=== PATIENT | male | born 1970 | race American Indian/Alaskan Native ===

== ENCOUNTER 2019-01-15 13:33 | Emergency (ER) | payer OTHER ==
[2019-01-15 13:34] VITALS: BMI 30.5
--- NOTE | 2019-01-15 14:05 | C.PDOC ---
History Of Present Illness 48 y/o male presents to ED requesting to speak to a psychiatrist. Patient states that he feels some people are trying to hurt him. Patient is a poor historian, doesnt provide enough details. He admits he smokes marijuana and occasionally uses ecstasy. Patient also complains of headache, eye pain, and mild nausea but denies any other physical complaints. He denies prior history of psychiatric illness. Time Seen by Provider: 01/15/19 13:46 Chief Complaint (Nursing): Psychiatric Evaluation History Per: Patient History/Exam Limitations: no limitations Onset/Duration Of Symptoms: Days Current Symptoms Are (Timing): Still Present Past Medical History Reviewed: Historical Data, Nursing Documentation, Vital Signs Vital Signs: Last Vital Signs Temp 98.2 F 01/15/19 13:44 Pulse 86 01/15/19 13:44 Resp 20 01/15/19 13:44 BP 121/84 01/15/19 13:44 Pulse Ox 18 L 01/15/19 13:44 - Medical History PMH: Depression Family History: Denies: No Known Family Hx - Social History Hx Tobacco Use: Yes (2 per day) Hx Alcohol Use: Yes Hx Substance Use: Yes (marijuana) Review Of Systems Constitutional: Negative for: Fever, Chills Eyes: Positive for: Pain Cardiovascular: Negative for: Chest Pain Respiratory: Negative for: Cough, Shortness of Breath Gastrointestinal: Positive for: Nausea (mild). Negative for: Vomiting, Abdominal Pain Neurological: Positive for: Headache. Negative for: Weakness, Numbness Psych: Positive for: Psychosis Physical Exam - Physical Exam Appears: Non-toxic, No Acute Distress, Other (calm, quiet, cooperative) Skin: Warm, Dry Head: Atraumatic, Normacephalic Eye(s): bilateral: Normal Inspection Oral Mucosa: Moist Neck: Supple Cardiovascular: Rhythm Regular, No Murmur Respiratory: Normal Breath Sounds, No Rales, No Rhonchi, No Wheezing Gastrointestinal/Abdominal: Soft, No Tenderness Extremity: Bilateral: Atraumatic, Normal ROM Neurological/Psych: Oriented x3, Normal Speech Gait: Steady ED Course And Treatment - Laboratory Results Result Diagrams: 01/15/19 14:25 01/15/19 14:25 Lab Interpretation: Abnormal (UDS +PCP, amphetamines and marijuana) ECG: Interpreted By Me ECG Rhythm: Sinus Tachycardia (with rightward axis) ECG Interpretation: No Acute Changes - Radiology CXR: Interpreted by Tn CXR Interpretation: Yes: No Acute Disease - Other Rad CXR X-Ray: Read By Radiologist Interpretation: FINDINGS: LUNGS: No active pulmonary disease. PLEURA: No significant pleural effusion identified. No pneumothorax apparent. CARDIOVASCUL AR: No aortic atherosclerotic calcification present. Normal cardiac size. No pulmonary vascular congestion. OSSEOUS STRUCTURES: No significant abnormalities. VISUALIZED UPPER ABDOMEN: Normal. OTHER FINDINGS: None. IMPRESSION: No active disease. - CT Scan/US Head Other Rad Studies (CT/US): Read By Radiologist, Radiology Report Reviewed CT/US Interpretation: Accession No. : [id number]. Patient Name / ID : JEFF Pickard / [id number]. Exam Date : 01/15/2019 14:11:07 ( Approved ). Study Comment : Sex / Age : M / 48Y. Creator : Ntaanael Lujan. Dictator : Allen Streeter MD. Flatwork Assembler : Apprenticeship Training Representative : Allen Streeter MD. Approver2 : Report Date : 01/15/2019 14:17:14. My Comment : * . Date of service: 01/15/2019. PROCEDURE: CT HEAD WITHOUT CONTRAST. HISTORY: headache. COMPARISON: None available. TECHNIQUE: Axial computed tomography images were obtained through the head/brain without intravenous contrast. Radiation dose: Total exam DLP = 1219.2 mGy-cm. This CT exam was performed using one or more of the following dose reduction techniques: Automated exposure control, adjustment of the mA and/or kV according to patient size, and/or use of iterative reconstruction technique. FINDINGS: HEMORRHAGE: No intracranial hemorrhage. BRAIN: No mass effect or edema. No atrophy or chronic microvascular ischemic changes. VENTRICLES: Unremarkable. No hydrocephalus. CALVARIUM: Unremarkable. PARANASAL SINUSES: Unremarkable as visualized. No significant inflammatory changes. MASTOID AIR CELLS: Unremarkable as visualized. No inflammatory changes. OTHER FINDINGS: None. IMPRESSION: Normal CT of the Head. Progress Note: Patient accepted for psychiatric admission at [facility] by Dr Coleman. Patient is medically cleared for transport to [facility]. Medical Decision Making Medical Decision Making: Plan: --Head CT --Labs --UA Disposition Counseled Patient/Family Regarding: Studies Performed - Disposition Disposition: Trans to Other Acute Care Hosp Disposition Time: 18:32 Condition: STABLE - Clinical Impression Clinical Impression: Bipolar disorder, Polysubstance abuse - Scribe Statement The provider has reviewed the documentation as recorded by the June Dotson Provider Attestation: All medical record entries made by the June were at my direction and personally dictated by me. I have reviewed the chart and agree that the record accurately reflects my personal performance of the history, physical exam, medical decision making, and the department course for this patient. I have also personally directed, reviewed, and agree with the discharge instructions and disposition.
[2019-01-15 14:28] LABS: BASO # 0.1 K/uL (0.0-0.2); BASO % 0.8 % (0.0-2.0); EOS % 0.1 % (0.0-4.0); HEMOGLOBIN 18.8 g/dL (12.0-18.0); LYMPH # 1.9 K/uL (1.0-4.3); LYMPH % 21.7 % (20.0-40.0); MEAN CELL VOLUME 91.1 fL (80.0-94.0); MEAN PLATELET VOLUME 7.5 fL (7.2-11.7); MONO # 1.1 K/uL (0.0-0.8); MONO % 13.2 % (0.0-10.0); NEUT # 5.5 K/uL (1.8-7.0); NEUT % 64.2 % (50.0-75.0); NRBC % 0.1 % (0.0-2.0); RBC 6.07 Mil/uL (4.40-5.90); RED CELL DISTRIBUTION WIDTH 13.4 % (11.5-14.5); WHITE BLOOD COUNT 8.6 K/uL (4.8-10.8)
[2019-01-15 14:41] LABS: ALB/GLOB RATIO 1.1 (1.0-2.1); ALBUMIN 4.8 g/dL (3.5-5.0); ALT/SGPT 20 U/L (21-72); AST/SGOT 62 U/L (17-59); BLOOD UREA NITROGEN 24 mg/dL (9-20); CALCIUM 10.7 mg/dl (8.6-10.4); GFR NON-AFRICAN AMERICAN 44
[2019-01-15 15:18] LABS: SQUAMOUS EPITHIAL < 1 /hpf (0-5); URINE BILIRUBIN 1+ (NEGATIVE); URINE BLOOD NEGATIVE (NEGATIVE); URINE CLARITY Hazy (Clear); URINE COLOR Amber (YELLOW); URINE GLUCOSE (UA) NORMAL (Normal); URINE HYALINE CAST >20 /lpf (0-2); URINE LEUKOCYTE ESTERASE NEG Leu/uL (Negative); URINE PROTEIN 2+ mg/dL (NEGATIVE)
[2019-01-15 15:20] LABS: BARBITURATES, UR NEGATIVE (NEGATIVE); BENZODIAZEPINES, UR NEGATIVE (NEGATIVE); OPIATES, UR NEGATIVE (NEGATIVE)
[2019-01-15 15:21] LABS: PHENCYCLIDINE, UR POSITIVE (NEGATIVE)
--- NOTE | 2019-01-15 15:26 | CT ---
Date of service: 01/15/2019 PROCEDURE: CT HEAD WITHOUT CONTRAST. HISTORY: headache COMPARISON: None available. TECHNIQUE: Axial computed tomography images were obtained through the head/brain without intravenous contrast. Radiation dose: Total exam DLP = 1219.2 mGy-cm. This CT exam was performed using one or more of the following dose reduction techniques: Automated exposure control, adjustment of the mA and/or kV according to patient size, and/or use of iterative reconstruction technique. FINDINGS: HEMORRHAGE: No intracranial hemorrhage. BRAIN: No mass effect or edema. No atrophy or chronic microvascular ischemic changes. VENTRICLES: Unremarkable. No hydrocephalus. CALVARIUM: Unremarkable. PARANASAL SINUSES: Unremarkable as visualized. No significant inflammatory changes. MASTOID AIR CELLS: Unremarkable as visualized. No inflammatory changes. OTHER FINDINGS: None. IMPRESSION: Normal CT of the Head.
--- NOTE | 2019-01-15 17:13 | RAD ---
Date of service: 01/15/2019 HISTORY: medical clearance COMPARISON: No prior. TECHNIQUE: Chest PA and lateral views FINDINGS: LUNGS: No active pulmonary disease. PLEURA: No significant pleural effusion identified. No pneumothorax apparent. CARDIOVASCULAR: No aortic atherosclerotic calcification present. Normal cardiac size. No pulmonary vascular congestion. OSSEOUS STRUCTURES: No significant abnormalities. VISUALIZED UPPER ABDOMEN: Normal. OTHER FINDINGS: None. IMPRESSION: No active disease.
[2019-01-15 18:55] VITALS: BP 106/77; PULSE 113; RESP 15; TEMP 98.7; O2SAT 98
== END 2019-01-15 20:39 | disposition short-term general hospital (02) ==
LOC: C.ER 13:33
DX: F31.9 Bipolar disorder, unspecified (principal); F19.10 Other psychoactive substance abuse, uncomplicated